=== PATIENT | male | born 1995 | race Caucasian/White ===

== ENCOUNTER → 2018-10-24 17:48 | Outpatient (CLI) | payer OTHER, SELFPAY ==
--- NOTE | 2018-10-24 18:05 | MRI_ITS ---
HISTORY: frontal migraine headache x 7 years COMPARISON: None. TECHNIQUE: Multiphasic multiplanar MR imaging of the brain per department protocol without and with 14 ml of Dotarem intravenous gadolinium. # of images including paperwork: 337 FINDINGS: BRAIN: Diffusion-weighted imaging shows no acute infarct. No remote parenchymal infarct. No parenchymal hemorrhage, intra-axial mass, mass effect, or midline shift. No abnormal extra-axial fluid collections. VENTRICLES: Ventricles are normal in size and configuration. No hydrocephalus. POST CONTRAST: No abnormal enhancing parenchymal or dural based lesions. OTHER: Paranasal sinuses are clear. Mastoid air cells are clear. Orbits are unremarkable. MRI/Brain W/WO Contrast IMPRESSION: 1. Normal pre-and postcontrast MR examination of the brain. at 2201 Reported and signed by: Abad Arias MD Electronically Signed: Abad Arias MD at 22:00 EDT Tel , Service support ,
== END ==
PROVIDERS: Family Provider Family Medicine; PCP Family Medicine; Referring Provider Family Medicine; Visit Provider Family Medicine
DX: G43.909 Migraine, unspecified, not intractable, without status migrainosus (principal)
CPT/HCPCS: 70553; A9575